=== PATIENT | female | born 1960 | race American Indian/Alaskan Native ===

== ENCOUNTER 2016-12-13 07:19 | Day surgery (SDC) | payer BC ==
--- NOTE | 2016-12-13 08:30 | Anesthesia Consultation ---
Anesthesia Consult and Med Hx Date of service: 12/13/16 - Airway Anesthetic Teeth Evaluation: Dentures (upper) ROM Head & Neck: Adequate Mental/Hyoid Distance: Adequate Mallampati Class: Class II Intubation Access Assessment: Probably Good - Pre-Operative Health Status ASA Pre-Surgery Classification: ASA3 Proposed Anesthetic Plan: MAC - Pulmonary Hx Smoking: Yes (1.5 p/d x 22 years) Hx Asthma: Yes COPD: Yes (recieving breathing treatments) - Cardiovascular System Hx Hypertension: Yes Hx Coronary Artery Disease: No (high cholesterol) - Central Nervous System Hx Psychiatric Problems: Yes (anxiety/depression) - Gastrointestinal Hx Gastroesophageal Reflux Disease: Yes (abdominal pain)
--- NOTE | 2016-12-13 08:31 | Anesthesia Day of Surgery ---
Anesthesia Day of Surgery - Day of Surgery Patient Examined: Yes Patient H&P Reviewed: Yes Patient is NPO: Yes Beta Blockers: Yes
[2016-12-13] MEDS ORDERED: NACL 0.9% 1000 ML 1,000 ML IV SCH (09:00)
[2016-12-13] MEDS ORDERED: DIPRIVAN 10 MG/ML IV ONE ×3 (09:21)
--- NOTE | 2016-12-13 10:14 | Short Stay Summary ---
Short Stay Documentation - Allergies and Medications Current Medications: Allergies No Known Allergies Allergy (Verified 12/13/16 08:22) Home Medications Medication Instructions Recorded Confirmed Last Taken Type Belsomra 10 mg PO DAILY 12/13/16 12/13/16 12/12/16 History Propranolol 30 mg PO TID 12/13/16 12/13/16 12/12/16 History Remeron 30 mg PO DAILY 12/13/16 12/13/16 12/12/16 History Wellbutrin 100 mg PO DAILY 12/13/16 12/13/16 12/12/16 History Zoloft 20 mg PO BID 12/13/16 12/13/16 12/12/16 History Active Medications Sodium Chloride (Nacl 0.9% 1000 Ml) 1,000 mls @ 50 mls/hr IV DIRECT LISSA Last Admin: 12/13/16 08:54 Dose: 50 mls/hr - Brief post op/procedure progress note Date of procedure: 12/13/16 Pre-op diagnosis: 1. Epigastric pain 2,. Colon cancer screening Post-op diagnosis: same (EGD: 1. GERD 2. Gastritis 3. Duodenitis Colonoscopy : Poor prep 2. Internal hemorrhoids) Procedure: 1. EGD with biopsy 2. Colonoscopy Anesthesia: MAC Findings: as above Surgeon: BIJAN RENDON Estimated blood loss: none Pathology: none (1. Antrum) Specimen disposition: to lab Condition: stable - Disposition Condition at discharge: Stable Disposition: - TO HOME OR SELFCARE Short Stay Discharge Plan Activity: no restrictions Weight Bearing Status: Full Weight Bearing Diet: regular Follow up with: YOEL FOUNTAIN MD [Primary Care Provider] - 7 Days
[2016-12-13 10:55] VITALS: BP 141/81
== END 2016-12-13 10:45 | disposition home or self-care (01) ==
LOC: GIO 07:19
PROVIDERS: ATTEND Internal Medicine Gastroenterology
DX: Z12.11 Encounter for screening for malignant neoplasm of colon (principal); K64.0 First degree hemorrhoids; K21.9 Gastro-esophageal reflux disease without esophagitis; K29.50 Unspecified chronic gastritis without bleeding; K29.80 Duodenitis without bleeding; F17.210 Nicotine dependence, cigarettes, uncomplicated; J44.9 Chronic obstructive pulmonary disease, unspecified; I10 Essential (primary) hypertension; E78.00 Pure hypercholesterolemia, unspecified; F41.9 Anxiety disorder, unspecified; Z86.19 Personal history of other infectious and parasitic diseases; Z79.899 Other long term (current) drug therapy; Z80.1 Family history of malignant neoplasm of trachea, bronchus and lung
CPT/HCPCS: 43239; 45378; 88305; 88342; J2704; J7030

== ENCOUNTER 2018-03-03 09:53 | Emergency (ER) | payer OTHER, BC ==
[2018-03-03] MEDS ORDERED: TORADOL IM ONE (10:43)
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
[2018-03-03 11:54] VITALS: BP 148/85
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
== END 2018-03-03 11:45 | disposition home or self-care (01) ==
LOC: ED 09:53
DX: S46.911A Strain of unspecified muscle, fascia and tendon at shoulder and upper arm level, right arm, initial encounter (principal); S70.01XA Contusion of right hip, initial encounter; S60.222A Contusion of left hand, initial encounter; S60.221A Contusion of right hand, initial encounter; I10 Essential (primary) hypertension; J44.9 Chronic obstructive pulmonary disease, unspecified; Z87.891 Personal history of nicotine dependence; V49.49XA Driver injured in collision with other motor vehicles in traffic accident, initial encounter; Y93.89 Activity, other specified; Y92.89 Other specified places as the place of occurrence of the external cause; Y99.8 Other external cause status
CPT/HCPCS: 73030; 73120; 73502; 96372; 99283; J1885

== ENCOUNTER 2021-08-12 11:17 | Emergency (ER) | payer BC, OTHER ==
[2021-08-12 11:22] VITALS: BP 132/97
--- NOTE | 2021-08-13 09:18 | Electrocardiograph Report ---
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
== END 2021-08-13 11:02 | disposition left against medical advice (07) ==
LOC: ED 11:17
DX: R07.9 Chest pain, unspecified (principal); Z53.21 Procedure and treatment not carried out due to patient leaving prior to being seen by health care provider
CPT/HCPCS: 93005